=== PATIENT | male | born 1995 | race Caucasian/White ===

== ENCOUNTER 2019-04-24 23:06 | Inpatient (IN) | payer OTHER ==
[~2019-04-24] VITALS: Ht 182.9 cm; Wt 63.5 kg
[2019-04-24 23:40] VITALS: BP 110/70
[2019-04-24] MEDS ORDERED: Metoclopramide 10mg/2ml Inj IVP ONE (23:45)
[2019-04-24] MEDS ORDERED: DiphenhydrAMINE 50mg/ml Inj IVP ONE (23:45)
--- NOTE | 2019-04-24 23:45 | NUR ---
ED Nurse Note: Patient walked in to ER c/o abdominal pain, N/D. Stated that he thinks it is kidney stones, because pain is radiating to the left flank area. AAO x4, VSS at this time, skin is dry warm to touch. Mother at bed side.
--- NOTE | 2019-04-24 23:50 | Emergency Room Report ---
History of Present Illness General Chief Complaint: Abdominal Pain Source: Patient Present Illness HPI Patient presents with complaints of several days of nausea vomiting and diarrhea Patient is having diffuse abdominal cramping Denies any chest pain denies any headache denies any neck pain he did have a low -grade fever initially Denies any recent travel denies any dysuria frequency denies any neck pain or photophobia Patient has had an appendectomy in the past Allergies: Coded Allergies: No Known Allergies (Unverified , 04/24/19) Patient History Past Medical History: see triage record Pertinent Family History: none Reviewed Nursing Documentation: PMH: Agreed; PSxH: Agreed Review of Systems All Other Systems: negative except mentioned in HPI Physical Exam Vital Signs Date Time Temp Pulse Resp B/P (MAP) Pulse Ox O2 Delivery O2 Flow Rate FiO2 04/24/19 23:13 97.9 65 16 110/70 (83) 97 Room Air Sp02 EP Interpretation: reviewed, normal General Appearance: well appearing, no apparent distress Head: normocephalic, atraumatic Eyes: bilateral eye PERRL, bilateral eye EOMI ENT: hearing grossly normal, TMs + canals normal, uvula midline, dry mucus membranes Neck: full range of motion, supple, no meningismus, no bony tend Respiratory: lungs clear, normal breath sounds, no rhonchi, no respiratory distress, no retraction, no accessory muscle use Cardiovascular #1: normal peripheral pulses, regular rate, rhythm, no edema, no gallop, no JVD, no murmur Gastrointestinal: normal bowel sounds, non tender, soft, no mass, no organomegaly, non-distended, no guarding, no hernia, no pulsatile mass, no rebound Genitourinary: no CVA tenderness Musculoskeletal: normal inspection Neurologic: oriented x3, responsive, 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, motor strength/ tone normal, sensory intact Psychiatric: mood/affect normal Lymphatic: normal inspection, no adenopathy Medical Decision Making Diagnostic Impression: Primary Impression: Pancreatitis ER Course With the history exam and presentation, multiple differentials considered, including but not limited to appendicitis, gastritis, cholecystitis, diverticulitis Patient has had previous appendectomy Blood work reveals elevated lipase levels patient reports drinking on Monday however did not feel that it was too excessive Continues to do better CT imaging is obtained for further evaluation showing signs of colitis and patient admitted for further care Labs Test 04/24/19 23:57 White Blood Count 8.3 K/UL (4.8-10.8) Red Blood Count 4.61 M/UL (4.70-6.10) Hemoglobin 14.4 G/DL (14.2-18.0) Hematocrit 41.6 % (42.0-52.0) Mean Corpuscular Volume 90 FL (80-99) Mean Corpuscular Hemoglobin 31.3 PG (27.0-31.0) Mean Corpuscular Hemoglobin Concent 34.7 G/DL (32.0-36.0) Red Cell Distribution Width 11.5 % (11.6-14.8) Platelet Count 194 K/UL (150-450) Mean Platelet Volume 6.6 FL (6.5-10.1) Neutrophils (%) (Auto) 67.3 % (45.0-75.0) Lymphocytes (%) (Auto) 14.6 % (20.0-45.0) Monocytes (%) (Auto) 16.8 % (1.0-10.0) Eosinophils (%) (Auto) 0.9 % (0.0-3.0) Basophils (%) (Auto) 0.4 % (0.0-2.0) Sodium Level 137 MMOL/L (136-145) Potassium Level 4.7 MMOL/L (3.5-5.1) Chloride Level 100 MMOL/L (98-107) Carbon Dioxide Level 30 MMOL/L (21-32) Anion Gap 8 mmol/L (5-15) Blood Urea Nitrogen 16 mg/dL (7-18) Creatinine 1.0 MG/DL (0.55-1.30) Estimat Glomerular Filtration Rate > 60 mL/min (>60) Glucose Level 105 MG/DL (74-106) Calcium Level 9.4 MG/DL (8.5-10.1) Total Bilirubin 0.3 MG/DL (0.2-1.0) Aspartate Amino Transf (AST/SGOT) 19 U/L (15-37) Alanine Aminotransferase (ALT/SGPT) 22 U/L (12-78) Alkaline Phosphatase 44 U/L (46-116) Total Creatine Kinase 126 U/L (26-308) Total Protein 7.8 G/DL (6.4-8.2) Albumin 4.4 G/DL (3.4-5.0) Globulin 3.4 g/dL Albumin/Globulin Ratio 1.3 (1.0-2.7) Lipase 1172 U/L (73-393) CT/MRI/US Diagnostic Results CT/MRI/US Diagnostic Results : Impression CT abdomen pelvisIMPRESSION: Suspected colitis. Correlate clinically. Last Vital Signs Date Time Temp Pulse Resp B/P (MAP) Pulse Ox O2 Delivery O2 Flow Rate FiO2 04/24/19 23:13 97.9 65 16 110/70 (83) 97 Room Air Status: improved Disposition: ADMITTED INPATIENT Condition: Serious Ju Gerardo DO Apr 24, 2019 23:50
[2019-04-25 00:06] LABS: BASOPHILS % (AUTO) 0.4 % (0.0-2.0); EOSINOPHILS % (AUTO) 0.9 % (0.0-3.0); HEMATOCRIT 41.6 % (42.0-52.0); HEMOGLOBIN 14.4 G/DL (14.2-18.0); LYMPHOCYTES % (AUTO) 14.6 % (20.0-45.0); MEAN CORPUSCULAR VOLUME 90 FL (80-99); MONOCYTES % (AUTO) 16.8 % (1.0-10.0); NEUTROPHILS % (AUTO) 67.3 % (45.0-75.0); PLATELET COUNT 194 K/UL (150-450); RED BLOOD COUNT 4.61 M/UL (4.70-6.10); RED CELL DISTRIBUTION WIDTH 11.5 % (11.6-14.8); WHITE BLOOD COUNT 8.3 K/UL (4.8-10.8)
[2019-04-25 00:16] LABS: ANION GAP 8 mmol/L (5-15); BLOOD UREA NITROGEN 16 mg/dL (7-18); CALCIUM 9.4 MG/DL (8.5-10.1); CARBON DIOXIDE 30 MMOL/L (21-32); CHLORIDE 100 MMOL/L (98-107); POTASSIUM 4.7 MMOL/L (3.5-5.1); SODIUM 137 MMOL/L (136-145)
[2019-04-25 00:21] LABS: ALANINE AMINOTRANSFERASE 22 U/L (12-78); ALBUMIN 4.4 G/DL (3.4-5.0); ALBUMIN/GLOBULIN RATIO 1.3 (1.0-2.7); ALKALINE PHOSPHATASE 44 U/L (46-116); ASPARTATE AMINO TRANSFERASE 19 U/L (15-37); BILIRUBIN,TOTAL 0.3 MG/DL (0.2-1.0); CREATINE KINASE 126 U/L (26-308)
--- NOTE | 2019-04-25 01:41 | History and Physical ---
History of Present Illness General Date patient seen: Apr 25, 2019 Time patient seen: 14:50 Reason for Hospitalization: Abdominal Pain Present Illness HPI 23 yo old male with hx appendectomy at age 4 years- presented to ER with complain of abd pain, nausea. vomiting since monday. now feels better. diarrhea has stopped. saw some blood with diarrhea. now has constipation. subjective minimal fever. mother at bedside. no sick contacts. no hosp admissions since age 4 for appendectomy. admits drinking beer but never drunk. never been told liver or pancreas disease. no chronic meds. no hx seizure or withdrawal. Mother felt he was dehydrated after 4 days of syptomms. so brought in. no smoking. er workup showed high lipase. ct scan pending. also mentions back pain= more when having abd cramps. no hx renal stone. now no pain. no urinary symptms Allergies: Coded Allergies: No Known Allergies (Unverified , 04/24/19) Patient History History Provided By: Patient, Family Member Healthcare decision maker Resuscitation status Advanced Directive on File Review of Systems Constitutional: Reports: fever Eye: Reports: no symptoms ENT: Reports: no symptoms Respiratory: Reports: no symptoms Cardiovascular: Reports: no symptoms Gastrointestinal: Reports: abdominal pain, diarrhea, nausea, vomiting Genitourinary: Reports: no symptoms Musculoskeletal: Reports: no symptoms Skin: Reports: no symptoms Psychiatric: Reports: no symptoms Neurological: Reports: no symptoms Endocrine: Reports: no symptoms Hematologic/Lymphatic: Reports: no symptoms Physical Exam General Appearance: WD/WN, no apparent distress, alert, alert oriented x3 Lines, tubes and drains: peripheral HEENT: normocephalic, atraumatic, anicteric, mucous membranes moist, PERRL, EOMI, supple Neck: non-tender, supple Respiratory/Chest: lungs clear, normal breath sounds, no respiratory distress Cardiovascular/Chest: normal rate, regular rhythm, no gallop/murmur Abdomen: normal bowel sounds, soft, no mass, other Extremities: normal range of motion, non-tender Skin Exam: warm/dry 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, no motor/sensory deficits, alert, oriented x 3 Musculoskeletal: normal muscle bulk Last 24 Hour Vital Signs Date Time Temp Pulse Resp B/P (MAP) Pulse Ox O2 Delivery O2 Flow Rate FiO2 04/24/19 23:40 97.9 16 110/70 97 Room Air 7/10/19 23:40 65 16 Room Air 04/24/19 23:13 97.9 65 16 110/70 (83) 97 Room Air Laboratory Tests Test 04/24/19 23:57 White Blood Count 8.3 K/UL (4.8-10.8) Red Blood Count 4.61 M/UL (4.70-6.10) L Hemoglobin 14.4 G/DL (14.2-18.0) Hematocrit 41.6 % (42.0-52.0) L Mean Corpuscular Volume 90 FL (80-99) Mean Corpuscular Hemoglobin 31.3 PG (27.0-31.0) H Mean Corpuscular Hemoglobin Concent 34.7 G/DL (32.0-36.0) Red Cell Distribution Width 11.5 % (11.6-14.8) L Platelet Count 194 K/UL (150-450) Mean Platelet Volume 6.6 FL (6.5-10.1) Neutrophils (%) (Auto) 67.3 % (45.0-75.0) Lymphocytes (%) (Auto) 14.6 % (20.0-45.0) L Monocytes (%) (Auto) 16.8 % (1.0-10.0) H Eosinophils (%) (Auto) 0.9 % (0.0-3.0) Basophils (%) (Auto) 0.4 % (0.0-2.0) Sodium Level 137 MMOL/L (136-145) Potassium Level 4.7 MMOL/L (3.5-5.1) Chloride Level 100 MMOL/L (98-107) Carbon Dioxide Level 30 MMOL/L (21-32) Anion Gap 8 mmol/L (5-15) Blood Urea Nitrogen 16 mg/dL (7-18) Creatinine 1.0 MG/DL (0.55-1.30) Estimat Glomerular Filtration Rate > 60 mL/min (>60) Glucose Level 105 MG/DL (74-106) Calcium Level 9.4 MG/DL (8.5-10.1) Total Bilirubin 0.3 MG/DL (0.2-1.0) Aspartate Amino Transf (AST/SGOT) 19 U/L (15-37) Alanine Aminotransferase (ALT/SGPT) 22 U/L (12-78) Alkaline Phosphatase 44 U/L (46-116) L Total Creatine Kinase 126 U/L (26-308) Total Protein 7.8 G/DL (6.4-8.2) Albumin 4.4 G/DL (3.4-5.0) Globulin 3.4 g/dL Albumin/Globulin Ratio 1.3 (1.0-2.7) Lipase 1172 U/L (73-393) H Height (Feet): 6 Weight (Pounds): 140 Objective Narrative young male with abd mild tenderness now.otherwise grossly stable Assessment/Plan Assessment/Plan: 23 yo male with abdomainl tamanna 1. abdominal pain acute pancreatitis 2. hx Alcohol use- last drink this monday 3. hx appendectomy 4. dehydration plan; admit to hospital. CT scan pending. IV Fluids, aggresive hydration. monitor lipase level alcohol withdrawl protocol/ ativan keep NPO Rylan Persaud MD Apr 25, 2019 01:41
--- NOTE | 2019-04-25 02:26 | NUR ---
ED Nurse Note: Patient was admited to [facility] due to pancreatitis. Patient was transfered to the unit via gurney, with all belongings, mom is by bed side. AAO x4, VSS at this time, skin is dry warm to touch.
[2019-04-25 02:39] VITALS: BP 111/70
--- NOTE | 2019-04-25 02:40 | NUR ---
NURSE NOTES: Received pt from ER in stable condition. AAO x 4, ambulatory, RA. Vitals stable. Report received from BRITTANI Roman. Pt admitted diagnosis with pancreatitis under Dr. Steward. Pt has had N/V/D last 2 days. Pt has no N/V/D right now. Pt reports pain 7/10 on lower back and flanks. Belongings list verified. Pt oriented the room. Dr Steward will be called to get admission orders. Pt has no home meds. Pt is from home. Pt instructed to call for assistance. Bed locked, alarm on, side rails up, call light within reach.
--- NOTE | 2019-04-25 03:00 | NUR ---
NURSE NOTES: Dr. Persaud called for admission order. Orders acknowledge
[2019-04-25] MEDS ORDERED: Morphine Sulfate 2mg/ml Inj(IV/IM USE ONLY) IVP PRN (03:30)
[2019-04-25 04:00] VITALS: BP 110/68
--- NOTE | 2019-04-25 05:00 | NUR ---
NURSE NOTES: Pt is in bed, asleep. No acute distress noted. NS running at 200ml/hr. No N/V/D now. Stool sample sent to lab for culture and c. diff. Dennis Gatica RN will be assisting in the patent care.
--- NOTE | 2019-04-25 07:05 | NUR ---
HAND-OFF: Report given to BRITTANI Marks.
--- NOTE | 2019-04-25 07:20 | NUR ---
NURSE NOTES: Pt resting in bed. A/O x 4, calm and cooperative. NPO. IVF infusing. call light within reach. will continue to monitor.
[2019-04-25 08:00] VITALS: BP 99/67
[2019-04-25] MEDS: Pantoprazole Inj IVP SCH (08:14)
[2019-04-25 08:45] LABS: BASOPHILS % (AUTO) 0.3 % (0.0-2.0); EOSINOPHILS % (AUTO) 1.2 % (0.0-3.0); HEMOGLOBIN 12.8 G/DL (14.2-18.0); LYMPHOCYTES % (AUTO) 18.9 % (20.0-45.0); MEAN CORPUSCULAR VOLUME 91 FL (80-99); MONOCYTES % (AUTO) 18.5 % (1.0-10.0); NEUTROPHILS % (AUTO) 61.1 % (45.0-75.0); PLATELET COUNT 162 K/UL (150-450); RED BLOOD COUNT 4.18 M/UL (4.70-6.10); RED CELL DISTRIBUTION WIDTH 11.8 % (11.6-14.8); WHITE BLOOD COUNT 6.6 K/UL (4.8-10.8)
[2019-04-25 09:16] LABS: ALANINE AMINOTRANSFERASE 19 U/L (12-78); ALBUMIN 3.8 G/DL (3.4-5.0); ALBUMIN/GLOBULIN RATIO 1.5 (1.0-2.7); ALKALINE PHOSPHATASE 36 U/L (46-116); ANION GAP 8 mmol/L (5-15); ASPARTATE AMINO TRANSFERASE 15 U/L (15-37); BILIRUBIN,TOTAL 0.3 MG/DL (0.2-1.0); BLOOD UREA NITROGEN 11 mg/dL (7-18); CALCIUM 8.7 MG/DL (8.5-10.1); CARBON DIOXIDE 28 MMOL/L (21-32); CHLORIDE 105 MMOL/L (98-107); CREATININE 0.8 MG/DL (0.55-1.30); POTASSIUM 3.9 MMOL/L (3.5-5.1); SODIUM 141 MMOL/L (136-145)
--- NOTE | 2019-04-25 09:48 | Diagnostic Imaging Report ---
Indication: Abdominal pain Technique: Continuous helical transaxial imaging of the abdomen and pelvis was obtained from the lung bases to the pubic symphysis. No intravenous contrast was administered. Coronal 2-D reformats were also obtained. Automatic Exposure Control was utilized. Total Dose length Product (DLP): 494.[address] Dose Index Volume (CTDIvol): 9.3 mGy Comparison: none Findings: There is thickening of the wall of the colon suspicious for colitis. Correlate clinically. There is no abscess or pneumatosis. Bowel gas pattern is nonobstructive. Appendectomy noted. Few small nodes seen in the mesentery nonspecific. No hydronephrosis or nephrolithiasis identified. There is no free fluid. Lung bases are clear. IMPRESSION: Suspected colitis. Correlate clinically. [facility] has communicated the preliminary results to the Emergency Department. Their findings are largely concordant with this report. The CT scanner at [facility] is accredited by the [employer] and the scans are performed using dose optimization techniques as appropriate to a performed exam including Automatic Exposure control.
[2019-04-25] MEDS ORDERED: LORazepam Inj 2mg/ml 1ml IV PRN (10:45)
--- NOTE | 2019-04-25 11:11 | GI Initial Consult Note ---
History of Present Illness General Date patient seen: Apr 25, 2019 Time patient seen: 11:09 Reason for Hospitalization: Abdominal Pain Referring physician: LIZ EVANS Reason for Consultation: Pancreatitis Present Illness HPI Patient presents with complaints of several days of nausea vomiting and diarrhea Patient is having diffuse abdominal cramping Denies any chest pain denies any headache denies any neck pain he did have a low -grade fever initially Denies any recent travel denies any dysuria frequency denies any neck pain or photophobia Patient has had an appendectomy in the past GI consulted for pancreatitis. Patient seen, awake alert and oriented x4 with no apparent distress. Patient currently denies any nausea vomiting, denies any abdominal pain, denies any constipation or diarrhea. Patient initially came in with a lipase level of 1172, which is now normalized. C. difficile was negative. Patient denied any use of current or recent IVDA, EtOH or tobacco use. Patient has no history of endoscopic or colonoscopy. Med list reviewed/reconciled: Yes Allergies: Coded Allergies: No Known Allergies (Unverified , 04/24/19) Patient History Past Surgical History: none Pertinent Family History: none Social History: Denies: smoking, alcohol use, drug use, other Review of Systems All Other Systems: negative except mentioned in HPI Physical Exam Vital Signs Date Time Temp Pulse Resp B/P (MAP) Pulse Ox O2 Delivery O2 Flow Rate FiO2 04/24/19 23:13 97.9 65 16 110/70 (83) 97 Room Air Sp02 EP Interpretation: reviewed, normal Labs Laboratory Tests Test 04/24/19 23:57 04/25/19 08:00 White Blood Count 8.3 K/UL (4.8-10.8) 6.6 K/UL (4.8-10.8) Red Blood Count 4.61 M/UL (4.70-6.10) L 4.18 M/UL (4.70-6.10) L Hemoglobin 14.4 G/DL (14.2-18.0) 12.8 G/DL (14.2-18.0) L Hematocrit 41.6 % (42.0-52.0) L 38.0 % (42.0-52.0) L Mean Corpuscular Volume 90 FL (80-99) 91 FL (80-99) Mean Corpuscular Hemoglobin 31.3 PG (27.0-31.0) H 30.7 PG (27.0-31.0) Mean Corpuscular Hemoglobin Concent 34.7 G/DL (32.0-36.0) 33.8 G/DL (32.0-36.0) Red Cell Distribution Width 11.5 % (11.6-14.8) L 11.8 % (11.6-14.8) Platelet Count 194 K/UL (150-450) 162 K/UL (150-450) Mean Platelet Volume 6.6 FL (6.5-10.1) 6.8 FL (6.5-10.1) Neutrophils (%) (Auto) 67.3 % (45.0-75.0) 61.1 % (45.0-75.0) Lymphocytes (%) (Auto) 14.6 % (20.0-45.0) L 18.9 % (20.0-45.0) L Monocytes (%) (Auto) 16.8 % (1.0-10.0) H 18.5 % (1.0-10.0) H Eosinophils (%) (Auto) 0.9 % (0.0-3.0) 1.2 % (0.0-3.0) Basophils (%) (Auto) 0.4 % (0.0-2.0) 0.3 % (0.0-2.0) Sodium Level 137 MMOL/L (136-145) Pending Potassium Level 4.7 MMOL/L (3.5-5.1) Pending Chloride Level 100 MMOL/L (98-107) Pending Carbon Dioxide Level 30 MMOL/L (21-32) Pending Anion Gap 8 mmol/L (5-15) 8 mmol/L (5-15) Blood Urea Nitrogen 16 mg/dL (7-18) Pending Creatinine 1.0 MG/DL (0.55-1.30) Pending Estimat Glomerular Filtration Rate > 60 mL/min (>60) Pending Glucose Level 105 MG/DL (74-106) Pending Calcium Level 9.4 MG/DL (8.5-10.1) Pending Total Bilirubin 0.3 MG/DL (0.2-1.0) 0.3 MG/DL (0.2-1.0) Aspartate Amino Transf (AST/SGOT) 19 U/L (15-37) 15 U/L (15-37) Alanine Aminotransferase (ALT/SGPT) 22 U/L (12-78) 19 U/L (12-78) Alkaline Phosphatase 44 U/L (46-116) L 36 U/L (46-116) L Total Creatine Kinase 126 U/L (26-308) Total Protein 7.8 G/DL (6.4-8.2) 6.3 G/DL (6.4-8.2) L Albumin 4.4 G/DL (3.4-5.0) 3.8 G/DL (3.4-5.0) Globulin 3.4 g/dL 2.5 g/dL Albumin/Globulin Ratio 1.3 (1.0-2.7) 1.5 (1.0-2.7) Lipase 1172 U/L (73-393) H 265 U/L (73-393) General Appearance: well appearing, no apparent distress, alert Head: normocephalic EENT: PERRL/EOMI, normal ENT inspection Neck: supple Respiratory: normal breath sounds, no respiratory distress Cardiovascular: normal rate Gastrointestinal: normal inspection, non tender, soft, normal bowel sounds, non -distended Rectal: deferred Genitourinary: deferred Musculoskeletal: normal inspection, back normal Neurologic: normal inspection, alert, oriented x3, responsive Psychiatric: normal inspection, judgement/insight normal, memory normal Skin: normal inspection, normal color, no rash, warm/dry, palpation normal, well hydrated Lymphatic: normal inspection, no adenopathy Current Medications Current Medications Medications (Trade) Dose Ordered Sig/Meera Route PRN Reason Start Time Stop Time Status Last Admin Dose Admin Acetaminophen (Tylenol) 650 mg Q6H PRN ORAL Mild Pain/Temp > 100.5 04/25/19 03:30 05/25/19 03:29 Lorazepam (Ativan 2mg/ml 1ml) 2 mg Q4H PRN IV ALCOHOL WITHDRAWAL 04/25/19 10:45 05/02/19 10:44 Morphine Sulfate (Morphine Sulfate) 1 mg Q4H PRN IVP Moderate Pain (Pain Scale 4-6) 04/25/19 03:30 05/02/19 03:29 Ondansetron HCl (Zofran) 4 mg Q6H PRN IVP Nausea & Vomiting 04/25/19 03:30 05/25/19 03:29 Pantoprazole (Protonix) 40 mg DAILY IVP 04/25/19 09:00 05/25/19 08:59 04/25/19 08:14 Sodium Chloride 1,000 ml @ 200 mls/hr Q5H IV 04/25/19 03:30 05/25/19 03:29 04/25/19 08:17 GI: Plan Problems: (1) Pancreatitis Plan pancreatitis unknown etiology, MRCP to r/o pancreatic divisum Symptomatic treatment Clear liquid diet, advance as tolerated Pain management Zofran as needed Obtain urine toxicity Follow labs Discussed with Dr. Islas. Thank you for this patient referral, we will follow. The patient was seen and examined at bedside and all new and available data was reviewed in the patients chart. I agree with the above findings, impression and plan. (Patient seen earlier today. Signature stamp does not reflect patient encounter time.). - MD Shalonda VelezOro Valley HospitalManisha [facility] Apr 25, 2019 11:11
[2019-04-25 11:44] VITALS: BP 114/66
--- NOTE | 2019-04-25 13:10 | NUR ---
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
--- NOTE | 2019-04-25 13:48 | Consultation ---
History of Present Illness General Date patient seen: Apr 25, 2019 Reason for Hospitalization: Abdominal Pain Present Illness HPI This is a very pleasant 23-year-old male who presented to [facility] complaining of abdominal pain nausea vomiting and diarrhea. Patient states been ongoing for a few days but decided to come in for evaluation. On admission patient identified to have chemical pancreatitis with a lipase greater than 1000 [address] as a CT scan with potential colitis. Surgery was called to evaluate. Patient seen, patient evaluated, chart reviewed. Patient states that he does drink alcohol but does not abuse and he does not drink it often. He does not recall having similar prior episodes. Did have an appendectomy a few years back. States the diarrhea is resolved and the pain is improved. Allergies: Coded Allergies: No Known Allergies (Unverified , 04/24/19) Patient History History Provided By: Patient Healthcare decision maker Resuscitation status Full Code Advanced Directive on File Past Medical/Surgical History Past Medical/Surgical History: (1) Abdominal pain (2) Colitis (3) Pancreatitis Review of Systems Review of Symptoms General ROS: no weight loss or fever Psychological ROS: no depression or mood changes, no memory loss Ophthalmic ROS: no visual changes or eye irritation ENT ROS: no nasal congestion, hearing loss, dizziness Allergy and Immunology ROS: no allergic symptoms or urticaria Hematological and Lymphatic ROS: no swollen glands, unusual bleeding or bruising Endocrine ROS: no polyuria, polydipsia, weight changes, temperature intolerance Respiratory ROS: no cough, shortness of breath, or wheezing Cardiovascular ROS: no chest pain or dyspnea on exertion Gastrointestinal ROS: abdominal pain, no bright red blood in stool. Musculoskeletal ROS: no myalgias or arthralgias Neurological ROS: no TIA or stroke symptoms Dermatological ROS: no new or changing skin lesions, rashes or pruritis Physical Exam Physical Exam General appearance: alert, cooperative, no distress, appears stated age Head: Normocephalic, without obvious abnormality, atraumatic Eyes: conjunctivae/corneas clear. PERRL, EOM's intact. Fundi benign Throat: Lips, mucosa, and tongue normal. Teeth and gums normal Neck: supple, symmetrical, trachea midline, no adenopathy, thyroid: not enlarged, symmetric, no tenderness/mass/nodules, no carotid bruit and no JVD Lungs: clear to auscultation bilaterally Heart: regular rate and rhythm, S1, S2 normal, no murmur, click, rub or gallop Abdomen: soft, non-tender. Bowel sounds normal. No masses, no organomegaly Extremities: extremities normal, atraumatic, no cyanosis or edema Pulses: 2+ and symmetric Skin: Skin color, texture, turgor normal. No rashes or lesions Neurologic: Grossly normal Last 24 Hour Vital Signs Date Time Temp Pulse Resp B/P (MAP) Pulse Ox O2 Delivery O2 Flow Rate FiO2 04/25/19 11:44 97.9 87 18 114/66 (82) 99 04/25/19 09:00 Room Air 04/25/19 08:00 97.9 63 18 99/67 (78) 99 04/25/19 04:00 97.9 63 18 110/68 (82) 99 04/25/19 03:17 Room Air 04/25/19 02:39 97.9 63 19 111/70 (84) 99 04/25/19 02:05 97.9 16 110/70 97 Room Air 04/24/19 23:40 97.9 16 110/70 97 Room Air 04/24/19 23:40 65 16 Room Air 04/24/19 23:13 97.9 65 16 110/70 (83) 97 Room Air Intake and Output 04/24/19 04/25/19 19:00 07:00 Intake Total 400 ml Balance 400 ml Intake IV Total 400 ml # Voids 3 # Bowel Movements 1 Laboratory Tests Test 04/24/19 23:57 04/25/19 08:00 White Blood Count 8.3 K/UL (4.8-10.8) 6.6 K/UL (4.8-10.8) Red Blood Count 4.61 M/UL (4.70-6.10) L 4.18 M/UL (4.70-6.10) L Hemoglobin 14.4 G/DL (14.2-18.0) 12.8 G/DL (14.2-18.0) L Hematocrit 41.6 % (42.0-52.0) L 38.0 % (42.0-52.0) L Mean Corpuscular Volume 90 FL (80-99) 91 FL (80-99) Mean Corpuscular Hemoglobin 31.3 PG (27.0-31.0) H 30.7 PG (27.0-31.0) Mean Corpuscular Hemoglobin Concent 34.7 G/DL (32.0-36.0) 33.8 G/DL (32.0-36.0) Red Cell Distribution Width 11.5 % (11.6-14.8) L 11.8 % (11.6-14.8) Platelet Count 194 K/UL (150-450) 162 K/UL (150-450) Mean Platelet Volume 6.6 FL (6.5-10.1) 6.8 FL (6.5-10.1) Neutrophils (%) (Auto) 67.3 % (45.0-75.0) 61.1 % (45.0-75.0) Lymphocytes (%) (Auto) 14.6 % (20.0-45.0) L 18.9 % (20.0-45.0) L Monocytes (%) (Auto) 16.8 % (1.0-10.0) H 18.5 % (1.0-10.0) H Eosinophils (%) (Auto) 0.9 % (0.0-3.0) 1.2 % (0.0-3.0) Basophils (%) (Auto) 0.4 % (0.0-2.0) 0.3 % (0.0-2.0) Sodium Level 137 MMOL/L (136-145) Pending Potassium Level 4.7 MMOL/L (3.5-5.1) Pending Chloride Level 100 MMOL/L (98-107) Pending Carbon Dioxide Level 30 MMOL/L (21-32) Pending Anion Gap 8 mmol/L (5-15) 8 mmol/L (5-15) Blood Urea Nitrogen 16 mg/dL (7-18) Pending Creatinine 1.0 MG/DL (0.55-1.30) Pending Estimat Glomerular Filtration Rate > 60 mL/min (>60) Pending Glucose Level 105 MG/DL (74-106) Pending Calcium Level 9.4 MG/DL (8.5-10.1) Pending Total Bilirubin 0.3 MG/DL (0.2-1.0) 0.3 MG/DL (0.2-1.0) Aspartate Amino Transf (AST/SGOT) 19 U/L (15-37) 15 U/L (15-37) Alanine Aminotransferase (ALT/SGPT) 22 U/L (12-78) 19 U/L (12-78) Alkaline Phosphatase 44 U/L (46-116) L 36 U/L (46-116) L Total Creatine Kinase 126 U/L (26-308) Total Protein 7.8 G/DL (6.4-8.2) 6.3 G/DL (6.4-8.2) L Albumin 4.4 G/DL (3.4-5.0) 3.8 G/DL (3.4-5.0) Globulin 3.4 g/dL 2.5 g/dL Albumin/Globulin Ratio 1.3 (1.0-2.7) 1.5 (1.0-2.7) Lipase 1172 U/L (73-393) H 265 U/L (73-393) Microbiology Date/Time Source Procedure Growth Status 04/25/19 03:30 Stool Clostridium difficile Toxin Assay - Final Complete Height (Feet): 6 Height (Inches): 0.00 Weight (Pounds): 140 Medications Current Medications Medications (Trade) Dose Ordered Sig/Meera Route PRN Reason Start Time Stop Time Status Last Admin Dose Admin Acetaminophen (Tylenol) 650 mg Q6H PRN ORAL Mild Pain/Temp > 100.5 04/25/19 03:30 05/25/19 03:29 Lorazepam (Ativan 2mg/ml 1ml) 2 mg Q4H PRN IV ALCOHOL WITHDRAWAL 04/25/19 10:45 05/02/19 10:44 Morphine Sulfate (Morphine Sulfate) 1 mg Q4H PRN IVP Moderate Pain (Pain Scale 4-6) 04/25/19 03:30 05/02/19 03:29 Ondansetron HCl (Zofran) 4 mg Q6H PRN IVP Nausea & Vomiting 04/25/19 03:30 05/25/19 03:29 Pantoprazole (Protonix) 40 mg DAILY IVP 04/25/19 09:00 05/25/19 08:59 04/25/19 08:14 Sodium Chloride 1,000 ml @ 200 mls/hr Q5H IV 04/25/19 03:30 05/25/19 03:29 04/25/19 08:17 Assessment/Plan Problem List: (1) Pancreatitis Assessment & Plan: 23-year-old male with acute episode of pancreatitis. No significant EtOH history. CT scan noted. Pending labs. Ultrasound of the abdomen ordered Okay for diet Pending lipids No acute surgical intervention necessary at this time. We will follow with recommendations Thank you for allowing me to participate in patient's care ICD Codes: K85.90 - Acute pancreatitis without necrosis or infection, unspecified SNOMED: 90895547 (2) Colitis Assessment & Plan: Patient with abdominal pain nausea vomiting diarrhea. CT scan with colitis. Labs with pancreatitis. Abdominal exam benign. Currently does not seem to be having significant active colitis Findings: There is thickening of the wall of the colon suspicious for colitis. Correlate clinically. There is no abscess or pneumatosis. Bowel gas pattern is nonobstructive. Appendectomy noted. Few small nodes seen in the mesentery nonspecific. No hydronephrosis or nephrolithiasis identified. There is no free fluid. Lung bases are clear. ICD Codes: K52.9 - Noninfective gastroenteritis and colitis, unspecified SNOMED: 97184570 (3) Abdominal pain ICD Codes: R10.9 - Unspecified abdominal pain SNOMED: 24333422 Mariano Rosales Apr 25, 2019 13:48
--- NOTE | 2019-04-25 14:17 | NUR ---
NURSE NOTES: pt transfer to MRI with wheelchair. pt awake, A/o x 4, calm, VS stable. NPO. Addendum: 04/25/19 at 1420 by Selina Manjarrez RN pts iphone and belonging in the room.
--- NOTE | 2019-04-25 15:07 | NUR ---
NURSE NOTES: Pts NPO since 2pm, last meal was lunch at 1200. Pts aware of MRI/ US order per will continue to monitor. Addendum: 04/25/19 at 1511 by Selina Manjarrez RN pts on clear liquid for lunch.
--- NOTE | 2019-04-25 15:26 | NUR ---
Pts back from MRI, stable , anxious no tremors, after MRI, requesting Ativan . will medicate per order.
[2019-04-25 16:00] VITALS: BP 110/66
--- NOTE | 2019-04-25 16:40 | Diagnostic Imaging Report ---
Indication: Nausea vomiting abdominal pain. Elevated lipase. Concern for pancreas divisum Technique: MRI of the abdomen was performed in a 1.5 Janelle magnet. Pulse sequences obtained include coronal and axial T2 single shot fast spin echo breathhold and respiratory gated coronal T2 3-D M.R.C.P.; this data set was displayed in different projections or MIPs. In addition, multiple coronal oblique thin T2 weighted, fat saturated SE sequences obtained through the CBD. Comparison: None Findings: The common bile duct is well-seen and appears unremarkable without dilatation or filling defect. Unfortunately, the main pancreatic duct is poorly seen on this examination (presumably due to small caliber) and therefore its relationship to the main pancreatic duct and its drainage pattern cannot be elucidated on this study. The question of whether the main pancreatic duct drains via the major papilla joining the CBD or whether it drains through the minor papilla is unknown. There is a T2 hyperintense edema with wall thickening of the visualized part of the colon which is the transverse colon splenic flexure and part of the descending colon. Findings consistent with colitis. There is some pericolonic T2 hyperintense fluid as well. There is no peripancreatic fluid identified. IMPRESSION: Nondiagnostic examination with regard to the question of pancreas divisum. No biliary ductal dilatation. Unremarkable gallbladder. Evidence of colitis as described above
--- NOTE | 2019-04-25 18:39 | NUR ---
Non-adm IV fluid 1829, pt was off the floor for an hour for MRI, next dose will be at 193, will endorse kevin nurse. Addendum: 04/25/19 at 190 by Selina Manjarrez RN Error /adm IV at 1829.
--- NOTE | 2019-04-25 19:16 | NUR ---
HAND-OFF: Report given to Tonia PETER.
--- NOTE | 2019-04-25 19:30 | NUR ---
NURSE NOTES:RECEIVED PT, A/O , DENIES PAIN, US ABDO COMPLETED, RESULTS PENDING, CLEAR LIQUIID DIET RESUMED
--- NOTE | 2019-04-25 19:32 | NUR ---
HAND-OFF: Report given to Zulema PETER.
[2019-04-25 20:00] VITALS: BP 117/64
[2019-04-26] VITALS: BP 108/67
[2019-04-26 04:00] VITALS: BP 111/58
--- NOTE | 2019-04-26 05:16 | NUR ---
patient sleot well, ambulating in room, pain meds not required, remains calm.
[2019-04-26 06:48] LABS: BASOPHILS % (AUTO) 0.5 % (0.0-2.0); HEMATOCRIT 37.1 % (42.0-52.0); HEMOGLOBIN 12.8 G/DL (14.2-18.0); LYMPHOCYTES % (AUTO) 17.6 % (20.0-45.0); MEAN CORPUSCULAR VOLUME 90 FL (80-99); MONOCYTES % (AUTO) 15.6 % (1.0-10.0); NEUTROPHILS % (AUTO) 65.2 % (45.0-75.0); PLATELET COUNT 178 K/UL (150-450); RED CELL DISTRIBUTION WIDTH 11.7 % (11.6-14.8); WHITE BLOOD COUNT 6.9 K/UL (4.8-10.8)
--- NOTE | 2019-04-26 07:04 | NUR ---
HAND-OFF: Report given to Brit.BRITTANI
--- NOTE | 2019-04-26 07:39 | NUR ---
NURSE NOTES: received pt in bed, awake, alert, no complaint of pain or discomfort. Pt receives IVF through LAC, no sign of infiltration noted. Bed locked at the lowest position possible, call light within easy reach, siderails up x3. Will continue to monitor pt and follow up with the plan of care.
[2019-04-26 07:43] LABS: ANION GAP 12 mmol/L (5-15); BLOOD UREA NITROGEN 6 mg/dL (7-18); CALCIUM 8.6 MG/DL (8.5-10.1); CARBON DIOXIDE 22 MMOL/L (21-32); CHLORIDE 108 MMOL/L (98-107); CREATININE 0.9 MG/DL (0.55-1.30); POTASSIUM 4.1 MMOL/L (3.5-5.1); SODIUM 142 MMOL/L (136-145)
[2019-04-26 08:00] VITALS: BP 113/60
[2019-04-26] MEDS: Pantoprazole Inj IVP SCH (08:16)
--- NOTE | 2019-04-26 11:05 | GI Progress Note ---
Assessment/Plan Problems: (1) Abdominal pain ICD Codes: R10.9 - Unspecified abdominal pain SNOMED: 95012935 (2) Colitis ICD Codes: K52.9 - Noninfective gastroenteritis and colitis, unspecified SNOMED: 40718798 (3) Pancreatitis ICD Codes: K85.90 - Acute pancreatitis without necrosis or infection, unspecified SNOMED: 55711132 Status: stable Status Narrative Discussed with Dr. Islas Assessment/Plan Urine toxicity positive for marijuana MRCP reviewed, negative for pancreatic divisum Pancreatitis resolved C. difficile, stool culture is negative for infectious colitis Patient wishes to be discharged, recommend the patient have an outpatient colonoscopy to evaluate his colitis, will follow up with us. Advance to regular diet Pain management Zofran as needed IV and p.o. hydration plus electrolyte correction Follow labs The patient was seen and examined at bedside and all new and available data was reviewed in the patients chart. I agree with the above findings, impression and plan. (Patient seen earlier today. Signature stamp does not reflect patient encounter time.). - Anders Islas MD Subjective Subjective Abdominal pain resolved Patient still has diarrhea, but has improved Wants to go home Objective Last 24 Hour Vital Signs Date Time Temp Pulse Resp B/P (MAP) Pulse Ox O2 Delivery O2 Flow Rate FiO2 04/26/19 08:00 99.2 64 17 113/60 (77) 98 04/26/19 04:00 98.8 58 18 111/58 (75) 98 04/26/19 00:00 98.1 69 18 108/67 (81) 97 04/25/19 21:54 Room Air 04/25/19 20:00 97 04/25/19 20:00 97.7 67 17 117/64 (81) 67 04/25/19 16:00 98.1 70 18 110/66 (81) 98 04/25/19 11:44 97.9 87 18 114/66 (82) 99 Intake and Output 04/25/19 04/26/19 19:00 07:00 Intake Total 1720 ml 3000 ml Balance 1720 ml 3000 ml Intake Oral 120 ml 400 ml IV Total 1600 ml 2600 ml # Voids 1 2 # Bowel Movements 1 Laboratory Tests Test 04/25/19 18:00 04/26/19 05:58 Urine Opiates Screen Negative (NEGATIVE) Urine Barbiturates Screen Negative (NEGATIVE) Phencyclidine (PCP) Screen Negative (NEGATIVE) Urine Amphetamines Screen Negative (NEGATIVE) Urine Benzodiazepines Screen Negative (NEGATIVE) Urine Cocaine Screen Negative (NEGATIVE) Urine Marijuana (THC) Screen Positive (NEGATIVE) H White Blood Count 6.9 K/UL (4.8-10.8) Red Blood Count 4.10 M/UL (4.70-6.10) L Hemoglobin 12.8 G/DL (14.2-18.0) L Hematocrit 37.1 % (42.0-52.0) L Mean Corpuscular Volume 90 FL (80-99) Mean Corpuscular Hemoglobin 31.1 PG (27.0-31.0) H Mean Corpuscular Hemoglobin Concent 34.4 G/DL (32.0-36.0) Red Cell Distribution Width 11.7 % (11.6-14.8) Platelet Count 178 K/UL (150-450) Mean Platelet Volume 7.0 FL (6.5-10.1) Neutrophils (%) (Auto) 65.2 % (45.0-75.0) Lymphocytes (%) (Auto) 17.6 % (20.0-45.0) L Monocytes (%) (Auto) 15.6 % (1.0-10.0) H Eosinophils (%) (Auto) 1.0 % (0.0-3.0) Basophils (%) (Auto) 0.5 % (0.0-2.0) Sodium Level 142 MMOL/L (136-145) Potassium Level 4.1 MMOL/L (3.5-5.1) Chloride Level 108 MMOL/L (98-107) H Carbon Dioxide Level 22 MMOL/L (21-32) Anion Gap 12 mmol/L (5-15) Blood Urea Nitrogen 6 mg/dL (7-18) L Creatinine 0.9 MG/DL (0.55-1.30) Estimat Glomerular Filtration Rate > 60 mL/min (>60) Glucose Level 67 MG/DL (74-106) L Calcium Level 8.6 MG/DL (8.5-10.1) Height (Feet): 6 Height (Inches): 0.00 Weight (Pounds): 140 General Appearance: WD/WN, no apparent distress, alert Cardiovascular: normal rate Respiratory/Chest: normal breath sounds, no respiratory distress Abdominal Exam: normal bowel sounds, non tender, soft Extremities: normal range of motion, non-tender Zaina Liz NP Apr 26, 2019 11:04
--- NOTE | 2019-04-26 11:05 | Diagnostic Imaging Report ---
Indication: Abdominal pain Technique: Grayscale and duplex Doppler imaging of the abdomen performed. Comparison: None Findings: The liver is unremarkable. Doppler interrogation of the main portal vein shows patency with hepatopedal, monophasic flow. There is no biliary ductal dilatation identified. CBD is 2 mm. Gallbladder is unremarkable. Sonographic Cespedes's sign was negative per technologist. There demonstrated part of the pancreas, aorta and IVC show no definite abnormalities. Both kidneys appear unremarkable. There is no hydronephrosis. IMPRESSION: No acute findings identified.
[2019-04-26 12:00] VITALS: BP 116/61
--- NOTE | 2019-04-26 12:08 | Discharge Instructions ---
Discharge Instructions Discharge Instructions Follow up with: Dr. Janel Gusman MD/Return to Hospital if: fevers, intractable vomiting or pain Diet: cardiac 2 GM Na, low fat Resume Normal Activity?: Yes Activity: resume normal activities For Congestive Heart Failure Reminder Report to your physician any weight gain of 5 pounds or more in one week. Alisha Gracia MD Apr 26, 2019 12:08
--- NOTE | 2019-04-26 14:24 | Surgery Progress Note ---
Surgery Progress Note Subjective Symptoms: improved, pain absent, tolerating diet, passing flatus Additional Comments states he feels much better no n/v/f/c tolerating diet ready to go home MRI and US noted Objective Last 24 Hour Vital Signs Date Time Temp Pulse Resp B/P (MAP) Pulse Ox O2 Delivery O2 Flow Rate FiO2 04/26/19 12:00 98.4 58 16 116/61 (79) 98 04/26/19 09:00 Room Air 04/26/19 08:00 99.2 64 17 113/60 (77) 98 04/26/19 04:00 98.8 58 18 111/58 (75) 98 04/26/19 00:00 98.1 69 18 108/67 (81) 97 04/25/19 21:54 Room Air 04/25/19 20:00 97 04/25/19 20:00 97.7 67 17 117/64 (81) 67 04/25/19 16:00 98.1 70 18 110/66 (81) 98 I&O Intake and Output 04/25/19 04/26/19 19:00 07:00 Intake Total 1720 ml 3000 ml Balance 1720 ml 3000 ml Intake Oral 120 ml 400 ml IV Total 1600 ml 2600 ml # Voids 1 2 # Bowel Movements 1 Cardiovascular: RSR Respiratory: clear Abdomen: soft, flat, non-tender, present bowel sounds, non-distended Extremities: no edema, no tenderness, no cyanosis Laboratory Tests Test 04/25/19 18:00 04/26/19 05:58 Urine Opiates Screen Negative (NEGATIVE) Urine Barbiturates Screen Negative (NEGATIVE) Phencyclidine (PCP) Screen Negative (NEGATIVE) Urine Amphetamines Screen Negative (NEGATIVE) Urine Benzodiazepines Screen Negative (NEGATIVE) Urine Cocaine Screen Negative (NEGATIVE) Urine Marijuana (THC) Screen Positive (NEGATIVE) H White Blood Count 6.9 K/UL (4.8-10.8) Red Blood Count 4.10 M/UL (4.70-6.10) L Hemoglobin 12.8 G/DL (14.2-18.0) L Hematocrit 37.1 % (42.0-52.0) L Mean Corpuscular Volume 90 FL (80-99) Mean Corpuscular Hemoglobin 31.1 PG (27.0-31.0) H Mean Corpuscular Hemoglobin Concent 34.4 G/DL (32.0-36.0) Red Cell Distribution Width 11.7 % (11.6-14.8) Platelet Count 178 K/UL (150-450) Mean Platelet Volume 7.0 FL (6.5-10.1) Neutrophils (%) (Auto) 65.2 % (45.0-75.0) Lymphocytes (%) (Auto) 17.6 % (20.0-45.0) L Monocytes (%) (Auto) 15.6 % (1.0-10.0) H Eosinophils (%) (Auto) 1.0 % (0.0-3.0) Basophils (%) (Auto) 0.5 % (0.0-2.0) Sodium Level 142 MMOL/L (136-145) Potassium Level 4.1 MMOL/L (3.5-5.1) Chloride Level 108 MMOL/L (98-107) H Carbon Dioxide Level 22 MMOL/L (21-32) Anion Gap 12 mmol/L (5-15) Blood Urea Nitrogen 6 mg/dL (7-18) L Creatinine 0.9 MG/DL (0.55-1.30) Estimat Glomerular Filtration Rate > 60 mL/min (>60) Glucose Level 67 MG/DL (74-106) L Calcium Level 8.6 MG/DL (8.5-10.1) Plan Problems: (1) Pancreatitis Assessment & Plan: 23-year-old male with acute episode of pancreatitis. No significant EtOH history. CT scan noted. Pending labs. US, MRI, and labs noted Okay for diet No acute surgical intervention necessary at this time. d/c home follow up with PCP We will follow with recommendations Thank you for allowing me to participate in patient's care (2) Colitis Assessment & Plan: Patient with abdominal pain nausea vomiting diarrhea. CT scan with colitis. Labs with pancreatitis. Abdominal exam benign. Currently does not seem to be having significant active colitis Findings: There is thickening of the wall of the colon suspicious for colitis. Correlate clinically. There is no abscess or pneumatosis. Bowel gas pattern is nonobstructive. Appendectomy noted. Few small nodes seen in the mesentery nonspecific. No hydronephrosis or nephrolithiasis identified. There is no free fluid. Lung bases are clear. (3) Abdominal pain Mariano Rosales Apr 26, 2019 14:24
--- NOTE | 2019-04-26 15:00 | NUR ---
NURSE NOTES: patient has been discharged to home, going ambulatory accompanied by mother, going by private vehicle. IV access was taken off, no bleeding noted after site compression. Patient signed off belongings list and left with all her belongings. Given discharge packet with educational pamphlet and GI dr Islas information for pt to f/u with office and do colonoscopy for colitis monitoring. Pt in stable condition and VS, no complaint of pain or discomfort at the moment. Taken ID band off.
--- NOTE | 2019-04-26 15:17 | NUR ---
INSURANCE CLINICALS AND REVIEW FROM 04/25 FAXED TO AUTH# [id number] FAX ALL CLINICALS TO: [phone]
--- NOTE | 2019-04-28 15:56 | Discharge Summary ---
Discharge Summary Hospital Course Date of Admission Apr 25, 2019 at 01:24 Date of Discharge Apr 26, 2019 at 15:00 Admitting Diagnosis pancreatitis HPI Matthew Palafox is a 23 year old male who was admitted on Apr 25, 2019 at 01:24 for Pancreatitis 23 yo old male with hx appendectomy at age 4 years- presented to ER with complain of abd pain, nausea. vomiting since monday. now feels better. diarrhea has stopped. saw some blood with diarrhea. now has constipation. subjective minimal fever. mother at bedside. no sick contacts. no hosp admissions since age 4 for appendectomy. admits drinking beer but never drunk. never been told liver or pancreas disease. no chronic meds. no hx seizure or withdrawal. Mother felt he was dehydrated after 4 days of syptomms. so brought in. no smoking. er workup showed high lipase. Consultations GI, Surgery, Neurology, Hospital Course Pt admitted to medicine service for management of acute pancreatitis. Pt was placed on clear liquid diet and later advanced to low fat diet, pain controlled with IV medications and placed on maintenance IV fluids. CT scan showed acute pancreatitis, and colitis. Pt evaluated by GI, recommended to have colonoscopy however pt refused, agreed to followup as outpatient for colitis evaluation on monday. On discharge, pts pain has improved, tolerating low fat diet, hemodynamically stable and ambulating with a stable gait. Discharge Condition Upon Discharge: stable Discharge Disposition Patient was discharged to Discharge Instructions Discharge Instructions Follow up with: Dr. Janel Gusman MD/Return to Hospital if: fevers, intractable vomiting or pain Activity: resume normal activities Alisha Gracia MD Apr 28, 2019 15:56
== END 2019-04-26 15:00 | disposition home or self-care (01) | DRG 440 ==
LOC: EMR 23:44 → 4E 04-25 01:24 → EDBEDREQ 04-25 01:55 → 4E 04-25 02:56
DX: K85.90 Acute pancreatitis without necrosis or infection, unspecified (principal); E86.0 Dehydration; K52.9 Noninfective gastroenteritis and colitis, unspecified
CPT/HCPCS: 36415; 74176; 74181; 76700; 80048; 80053; 80307; 82550; 83690; 85025; 87045; 87324; 96361; 96374; 96375; 99285; J2765

== ENCOUNTER 2019-05-24 07:46 | Day surgery (SDC) | payer OTHER ==
[~2019-05-24] VITALS: Ht 182.9 cm; Wt 63.5 kg
[2019-05-24] VITALS (9 sets, daily range): BP systolic 96–124; BP diastolic 44–91
[2019-05-24] MEDS ORDERED: Succinylcholine 20mg/ml 10ml vial ONE (08:17)
[2019-05-24] MEDS ORDERED: Propofol 200mg/20ml IV ONE (10:00)
--- NOTE | 2019-05-24 10:01 | Pre-Procedure Note/Attestation ---
Pre-Procedure Note/Attestation Complete Prior to Procedure Planned Procedure: not applicable Procedure Narrative: colonoscopy Indications for Procedure Pre-Operative Diagnosis: colitis Attestation I attest that I discussed the nature of the procedure; its benefits; risks and complications; and alternatives (and the risks and benefits of such alternatives ), prior to the procedure, with the patient (or the patient's legal graphic art sales representative). I attest that, if there was a reasonable possibility of needing a blood transfusion, the patient (or the patient's legal graphic art sales representative) was given the [facility] standardized written summary, pursuant to the Mario Patrice Blood Safety Act ([place] Health and Safety Code # 1645, as amended). I attest that I re-evaluated the patient just prior to the surgery and that there has been no change in the patient's H&P, except as documented below: Anders Islas MD May 24, 2019 10:01
--- NOTE | 2019-05-24 10:02 | Short Stay Surgery H&P ---
History of Present Illness History of Present Illness Chief Complaint colitis HPI Matthew Palafox is a 23 year old male who was admitted on for Pancreatitis Patient History Allergies: Coded Allergies: No Known Allergies (Unverified , 04/24/19) PAST MEDICAL HISTORY: (1) Abdominal pain (2) Colitis (3) Pancreatitis Review of Systems Cardiovascular: Reports: no symptoms Skeletal: Reports: no symptoms Gastrointestinal: Reports: no symptoms Genitourinary: Reports: no symptoms Neurologic: Reports: no symptoms Endocrine: Reports: no symptoms Physical Exam Vital Signs Last Vital Signs Date Time Temp Pulse Resp B/P (MAP) Pulse Ox O2 Delivery O2 Flow Rate FiO2 05/24/19 09:47 Room Air 05/24/19 09:40 97.2 52 18 119/69 100 Skin: normal HENT: normal Heart: normal Lungs: normal Abdomen: normal Extremities: normal Plan Plan of Care colonoscopy Attestation Are the patient's medical conditions optimized for surgery? Attestation Response: yes Anders Islas MD May 24, 2019 10:02
--- NOTE | 2019-05-24 10:15 | Endoscopy Procedure Note ---
Endoscopy Procedure Note General Indication for Procedure: colitis Procedures Performed: colonoscopy Operative Findings/Diagnosis: hemorrhoids Specimen: yes Pt Tolerated Procedure Well: Yes Estimated Blood Loss: none Anesthesia Anesthesiologist: francesca Anesthesia: MAC Inserted Devices Implant(s) used?: No Quality Quality of Bowel Preparation: Good Did scope reach the cecum?: Yes Was there any complications?: No GI Core Measures 50 yrs or older w/o bx or poly: No 10yrs. F/U recommended: Yes If not recommended, why?: Above average risk 18 years or older w/prev. colo: No Anders Islas MD May 24, 2019 10:15
--- NOTE | 2019-05-24 10:27 | Anethesia Preoperative Eval ---
Anesthesia Pre-op PMH/ROS General Date of Evaluation: May 24, 2019 Time of Evaluation: 10:10 Anesthesiologist: Flor Cain CRNA ASA Score: ASA 2 Mallampati Score Class I : Soft palate, uvula, fauces, pillars visible Class II: Soft palate, uvula, fauces visible Class III: Soft palate, base of uvula visible Class IV: Only hard plate visible Mallampati Classification: Class I Surgeon: Janel Diagnosis: pancreatitis Surgical Procedure: Colonoscopy Anesthesia History: none Social History: smoking Family History: no anesthesia problems Allergies: Coded Allergies: No Known Allergies (Unverified , 04/24/19) Medications: see eMAR Patient NPO?: Yes NPO Date: May 24, 2019 NPO Time: 00:00 Past Medical History Cardiovascular: Denies: HTN, CAD, HI, valve dz, arrhythmia, other Pulmonary: Reports: other - pancreatitis; Denies: asthma, COPD, FLAVIO Gastrointestinal/Genitourinary: Denies: GERD, CRI, ESRD, other Neurologic/Psychiatric: Denies: dementia, CVA, depression/anxiety, TIA, other Endocrine: Denies: DM, hypothyroidism, steroids, other HEENT: Denies: cataract (L), cataract (R), glaucoma, MILLE LACS (L), MILLE LACS (R), other Hematology/Immune: Denies: anemia, DVT, bleeding disorder, other Musculoskeletal/Integumentary: Denies: OA, RA, DJD, DDD, edema, other PMH Narrative: as noted above PSxH Narrative: appy Anesthesia Pre-op Phys. Exam Physician Exam Last Vital Signs Date Time Temp Pulse Resp B/P (MAP) Pulse Ox O2 Delivery O2 Flow Rate FiO2 05/24/19 09:47 Room Air 05/24/19 09:40 97.2 52 18 119/69 100 Constitutional: NAD Cardiovascular: RRR Respiratory: CTA Gastrointestinal: S/NT/ND Airway Exam Mallampati Score: Class I MO: full Neck: FROM TMD: > 3 FB ROM: full Teeth: intact Dentures: no upper, no lower Anesthesia Pre-op A/P Risk Assessment & Plan Assessment: ASA 2, ok to proceed Plan: MAC Status Change Before Surgery: No Pre-Antibiotics Given Within 1 Hr of Incision: Flor Tapia CRNA May 24, 2019 10:27
--- NOTE | 2019-05-24 10:50 | Immediate Post-Op Evaluation ---
Immediate Post-Op Evalulation Immediate Post-Op Evalulation Procedure: Colonoscopy with biopsies Date of Evaluation: May 24, 2019 Time of Evaluation: 10:46 IV Fluids: 0.9 NS 400 ml Blood Pressure Systolic: 124 Blood Pressure Diastolic: 91 Pulse Rate: 47 Respiratory Rate: 16 O2 Sat by Pulse Oximetry: 100 Temperature (Fahrenheit): 97.1 Pain Score (1-10): 0 Nausea: No Vomiting: No Complications none Patient Status: awake, patent Hydration Status: adequate Given Within 1 Hr of Incision: Flor Tapia CRNA May 24, 2019 10:50
--- NOTE | 2019-05-24 12:22 | 48 Hour Post Anesthesia Eval ---
Post Anesthesia Evaluation Procedure: Colonoscopy with biopsies Date of Evaluation: May 24, 2019 Time of Evaluation: 11:25 Blood Pressure Systolic: 103 0: 51 Pulse Rate: 50 Respiratory Rate: 19 Temperature (Fahrenheit): 97.2 O2 Sat by Pulse Oximetry: 98 Airway: patent Nausea: No Vomiting: No Pain Intensity: 0 Hydration Status: adequate Cardiopulmonary Status: stable Mental Status/LOC: patient returned to baseline Follow-up Care/Observations: per GI Post-Anesthesia Complications: none Follow-up care needed: N/A Flor Cain CRNA May 24, 2019 12:22
--- NOTE | 2019-05-24 19:30 | Procedure Note ---
DATE OF PROCEDURE: 05/24/2019 PROCEDURE: Colonoscopy with biopsy. SURGEON: Anders Islas M.D. ANESTHESIA: Per Flor MA. INDICATION: Colitis based on CT and the patient having diarrhea. REASON FOR PROCEDURE: The procedure, risks, benefits, and possible consequences, including hemorrhage, aspiration, perforation and infection, and alternative treatments, were explained to the patient/legal guardian by Dr. Anders Islas and the patient/legal guardian understood and accepted these risks. DESCRIPTION OF PROCEDURE: After informed consent was obtained and the patient was adequately sedated, first rectal exam was performed, which was positive for internal hemorrhoids. Then, the scope was advanced from the rectum into the cecum and then subsequently into terminal ileum. Quality of prep was good. The patient had normal colonoscopy examination. Random biopsy from TI, right colon, and left colon was obtained for evaluation of diarrhea. Retroflexion of rectum showed evidence of internal hemorrhoids. SUMMARY OF FINDINGS: Normal colonoscopy examination. Status post biopsy of the TI, right colon, and left colon for evaluation of diarrhea. RECOMMENDATIONS: Follow up pathology and treat accordingly. Anders Islas M.D. DR: JIAN JOB#: [id number] CC:
== END 2019-05-24 11:55 | disposition home or self-care (01) ==
LOC: GAS 07:46
DX: K52.9 Noninfective gastroenteritis and colitis, unspecified (principal); R19.7 Diarrhea, unspecified; K64.8 Other hemorrhoids; Z87.891 Personal history of nicotine dependence; Z90.89 Acquired absence of other organs
CPT/HCPCS: 45380; J0330; J2704; 94003; 94150